=== PATIENT | male | born 1975 | race Caucasian/White ===

== ENCOUNTER 2021-05-18 18:03 | Observation (INO) | payer BC, SELFPAY ==
--- NOTE | ~2021-05-18 | CT_ITS ---
EXAMINATION: CT abdomen pelvis w con DATE: 05/18/2021 20:23 INDICATION: Right lower quadrant abdominal pain today TECHNIQUE: Computed tomography (CT) of the abdomen and pelvis was performed with 100 cc Omnipaque 350 intravenous contrast. Automated exposure control and iterative reconstruction technique were employe d. Exam dose: 396.51 mGy-cm total exam DLP. COMPARISON: 11/24/2018 CT abdomen pelvis FINDINGS: There is mild bilateral dependent lower lobe atelectasis. Normal heart size. No pericardial or pleural effusion. 5 mm right hepatic cyst. No suspicious hepatic mass lesion. The gallbladder is unremarkable. No bile duct dilatation. No pancreatic mass lesion, calcification or ductal dilatation. Normal splenic size. Normal morphology of the adrenal glands. There are couple of up to 6 mm right renal cyst. 1 cm and 2.8 cm left renal cysts. Approximately 1.5 x 3.5 mm nonobstructing lower pole left renal calculus. There is a smaller nonobstructing upper pole right renal calculus. No ureteral calculus or hydroureteronephrosis. The urinary bladder, prostate gland and seminal vesicl es are unremarkable. Status post bilateral inguinal herniorrhaphy. There is a 12 mm dilated appendix with thickened wall and mild periappendiceal fat stranding, consist ent with acute appendicitis. No bowel obstruction, bowel wall thickening, pneumatosis or intraperitoneal free air. Normal caliber of the abdominal aorta. No intraperitoneal or retroperitoneal or pelvic mass lesion or adenopathy or ascites. The Small fat-containing umbilical hernia. IMPRESSION: Acute appendicitis; no abscess or free air is evident. Dr. Juarez telephoned the report to emergency room physician Dr. Demarco on 05/18/2021 at 2040 hours. Reviewed, dictated and finalized at [facility]. Reviewed, dictated and finalized at [facility]. IMPRESSION: Acute appendicitis; no abscess or free air is evident. Dr. Juarez telephoned the report to emergency room physician Dr. Demarco on at 2040 hours.
[2021-05-18 18:19] VITALS: BP 137/92; PULSE 72; RESP 17; TEMP 36.6; O2SAT 100
[2021-05-18 18:40] LABS: Basophils Absolute Auto 0.1 K/mm3 (0.0-0.1); Basophils Percent Auto 0.3 % (0.2-1.2); Eosinophils Absolute Auto 0.2 K/mm3 (0-0.3); Eosinophils Percent Auto 1.4 % (0-4.4); Hematocrit 39.7 % (42.0-52.0); Hemoglobin 13.6 g/dL (14.0-18.0); Immature Granulocyte Absolute 0.04 K/mm3 (0.00-0.031); Immature Granulocyte Percent A 0.3 % (0-0.5); Lymphocytes Absolute Auto 1.13 K/mm3 (0.9-3.2); Lymphocytes Percent Auto 7.7 % (18.3-44.2); Mean Corpuscular HGB Conc 34.3 g/dl (32-36); Mean Corpuscular Hemoglobin 32.8 pg (26-34); Mean Corpuscular Volume 95.7 fl (80-100); Mean Platelet Volume 8.5 fl (7.4-10.4); Monocytes Absolute Auto 0.8 K/mm3 (0.1-0.6); Monocytes Percent Auto 5.7 % (2.6-8.5); Neutrophils Absolute Auto 12.4 K/mm3 (1.3-6.7); Neutrophils Percent Auto 84.6 % (45.5-73.1); Platelet Count Result 239 k/mm3 (150-375); Red Blood Count 4.15 M/mm3 (4.6-6.20); Red Cell Distribution Width 11.9 % (11.5-14.5); White Blood Count 14.6 K/mm3 (4.5-10.0)
[2021-05-18 18:52] LABS: Alanine Aminotransferase 38 U/L (4-50); Albumin Level 4.6 g/dL (3.5-5.1); Alkaline Phosphatase 47 U/L (38-126); Anion Gap 10 mmol/L (8-16); Aspartate Amino Transferase 28 U/L (17-59); Bilirubin,Total 0.6 mg/dL (0.2-1.3); Blood Urea Nitrogen 15 mg/dL (9-20); Calcium 9.9 mg/dL (8.4-10.2); Carbon Dioxide 24 mmol/L (22-30); Chloride 105 mmol/L (98-107); Estimated CRCL calculation 103 ml/min; Estimated Glomerular Filt Rate > 60; Glucose 110 mg/dL (65-110); Lipase 113 U/L (23-300); Potassium 4.4 mmol/L (3.4-5.0); Sodium 139 mmol/L (137-145)
[2021-05-18 18:59] LABS: Add Urine Microscopic? YES; Appearance Urine Clear (Clear); Bilirubin Urine Negative (Negative); Blood Urine 3+ (Negative); Color Urine Yellow (Yellow); Glucose Urine UA Negative (Negative); Ketones Urine Trace mg/dL (Negative); Leukocyte Esterase Ur Negative LEU/UL (Negative); Mucus Urine Rare /lpf; Nitrate Urine Negative (Negative); Protein Urine Negative (Negative); Specific Grav Ur 1.018 (1.001-1.035); Squamous Epithelial Cell Urine Rare /hpf (Few); Urobilinogen Urine Negative mg/dL (<2.0); WBC Urine 0-3 /hpf
[2021-05-18 19:51] VITALS: BP 144/89; PULSE 66; RESP 20
[2021-05-18] MEDS: KETOROLAC 30 MG/ML VIAL (*BKC) IV PUSH (20:04)
[2021-05-18] MEDS: MORPHINE SULFATE (*CRX) 4 MG/ML INJ IV PUSH (20:04)
[2021-05-18] MEDS: SODIUM CHLORIDE 0.9% IV 1,000 ML 999 ML IV CONT (20:04)
--- NOTE | 2021-05-18 20:13 | ED.GENADULT ---
HPI - General Adult General Chief complaint: Abdominal Pain Stated complaint: abd pain Time Seen by Provider: 05/18/21 19:44 Source: patient History of Present Illness HPI narrative: Patient is a 46 y/o male complaining of abdominal pain starting a few hours ago around 2:00 PM. He describes his pain as sharp and rates it 7/10. There is no known alleviating or exacerbating factor. His pain was initially located in epigastric area, but moved to right lower quadrant later. He has no vomiting or diarrhea. Related Data Home Medications Medication Instructions Recorded Confirmed atorvastatin 40 mg PO HS 05/18/21 05/18/21 lisinopril 40 mg PO HS 05/18/21 05/18/21 Allergies Allergy/AdvReac Type Severity Reaction Status Date / Time No Known Allergies Verified 05/18/21 23:05 NKDA Allergy Unknown Unknown Uncoded 05/18/21 23:05 NKFA Allergy Unknown Unknown Uncoded 05/18/21 23:05 Review of Systems Constitutional: Constitutional: Denies chills, Denies fever(s), Denies headache(s) and Denies weakness Eyes: Eyes: Denies blurry vision ENT: Denies headache(s) and Denies neck pain Cardiovascular: Cardiovascular: Denies chest pain and Denies dyspnea Respiratory: Respiratory: Denies cough and Denies dyspnea Gastrointestinal: Gastrointestinal: Reports abdominal pain, Denies diarrhea, Denies nausea and Denies vomiting Genitourinary: Genitourinary: Denies hematuria and Denies dysuria Musculoskeletal: Musculoskeletal: Denies back pain and Denies neck pain Neurologic: Denies headache(s) and Denies weakness [facility] Past Medical History Medical History Bilateral inguinal hernia Elevated blood pressure reading Hypercholesteremia Surgical History Surgical History History of hernia repair (~05/05/10) Family History Family History Other Malignant neoplasm of prostate Social History Social History Smoking status: Never smoker Second hand tobacco smoke exposure: No Alcohol intake: current Drinks per week: 10 Substance use: never Substance use type: does not use Spiritual care concerns: No Exam Const: General: no acute distress and well developed Orientation/consciousness: oriented to person, oriented to place, oriented to time and patient oriented x3 HENMT: Head: normocephalic Ears: external ears normal General nose exam: Normal external nose present Eyes: General: appearance normal, both eyes and all related structures Conjunctivae: conjunctivae normal Neck: Neck: normal visual inspection and full ROM Chest: Chest palpation & inspection: normal inspection of the chest and no tenderness Resp: Effort & Inspection: normal respiratory effort Auscultation: clear to auscultation bilaterally Cardio: Rate: regular rate Rhythm: regular rhythm GI: GI Palp: Yes abdominal tenderness (right lower abdomen) and Yes Soft to palpation Skin: General skin exam: normal color and turgor normal Neuro: General: oriented to person, oriented to place, oriented to time and patient oriented x3 Cognition (Neuro): normal cognition Extrem: General: normal to inspection, full ROM and no pedal edema Psych: Appearance: grossly normal Mental Status: mental status grossly normal Affect: normal affect Course Consultations Consultation #1: Discussed with Dr. Monique, who agrees to admit. Date: 05/18/21 Time: 20:49 Vital Signs Vital signs: Vital Signs Temperature 36.6 C 05/18/21 18:19 Pulse Rate 72 05/18/21 18:19 Respiratory Rate 17 05/18/21 18:19 Blood Pressure 137/92 H 05/18/21 18:19 Pulse Oximetry 100 05/18/21 18:19 Temperature 36.6 C 05/18/21 18:19 Pulse Rate 89 05/18/21 21:57 Respiratory Rate 18 05/18/21 21:57 Blood Pressure 125/75 05/18/21 21:57 Pulse Oximetry 97 05/18/21 2
[2021-05-18 20:51] VITALS: BP 126/74; PULSE 87; RESP 20; O2SAT 99
[2021-05-18 21:57] VITALS: BP 125/75; PULSE 89; RESP 18; O2SAT 97
--- NOTE | 2021-05-18 23:05 | ADMGEN ---
This patient, Morgan Martin, was admitted to Medical Room 344-01. Patient/family oriented to hospital policies and general routines including ID bracelet, bed and alarms, visiting hours, pain management, procedures, bathroom and other care routines, personal items, smoking policy, room service/diet, and visiting hours. Information on how to activate the Rapid Response Team has been discussed. Patient/Family are encouraged to report perceived risks to care and to ask questions if they do not understand what they are told or what they should do.
[2021-05-18] MEDS: SODIUM CHLORIDE 0.9% IV 1,000 ML 125 ML IV CONT (23:32)
[2021-05-19] VITALS (11 sets, daily range): BP systolic 106–136; BP diastolic 64–81; PULSE 69–89; RESP 12–20; TEMP 36.2–37.7; O2SAT 94–100
[2021-05-19 06:06] LABS: Basophils Percent Auto 0.2 % (0.2-1.2); Eosinophils Percent Auto 0.1 % (0-4.4); Hematocrit 35.9 % (42.0-52.0); Hemoglobin 12.3 g/dL (14.0-18.0); Immature Granulocyte Absolute 0.06 K/mm3 (0.00-0.031); Immature Granulocyte Percent A 0.4 % (0-0.5); Lymphocytes Absolute Auto 1.14 K/mm3 (0.9-3.2); Lymphocytes Percent Auto 7.9 % (18.3-44.2); Mean Corpuscular HGB Conc 34.3 g/dl (32-36); Mean Corpuscular Hemoglobin 32.5 pg (26-34); Mean Platelet Volume 8.9 fl (7.4-10.4); Monocytes Absolute Auto 0.9 K/mm3 (0.1-0.6); Monocytes Percent Auto 6.2 % (2.6-8.5); Neutrophils Absolute Auto 12.4 K/mm3 (1.3-6.7); Neutrophils Percent Auto 85.2 % (45.5-73.1); Platelet Count Result 217 k/mm3 (150-375); Red Blood Count 3.78 M/mm3 (4.6-6.20); Red Cell Distribution Width 11.9 % (11.5-14.5); White Blood Count 14.5 K/mm3 (4.5-10.0)
[2021-05-19] MEDS: MORPHINE SULFATE (*CRX) 4 MG/ML INJ IV PUSH (06:16)
--- NOTE | 2021-05-19 08:21 | PC.NURSE ---
Patient taken to or.
--- NOTE | 2021-05-19 08:33 | WPDANESEPPF ---
Anes - Initial Pre Proc Eval Procedure: Operation Date: 05/19/21 09:00 Proposed Procedures p Laparoscopic Appendectomy - Alon Monique MD Date/Time: 05/19/21 08:33 Surgeon: Alon Monique MD Pre Op Diagnosis: Appendicitis Patient Data Age: 46 Gender: M Height: 1.78 m Weight: 75 kg Last Vital Signs Temp 37.7 C H 05/19/21 06:00 Pulse 78 05/19/21 06:00 Resp 18 05/19/21 06:00 BP 136/70 05/19/21 06:00 Pulse Ox 98 05/19/21 06:00 Allergies Allergy/AdvReac Type Severity Reaction Status Date / Time No Known Allergies Verified 05/18/21 23:05 NKDA Allergy Unknown Unknown Uncoded 05/18/21 23:05 NKFA Allergy Unknown Unknown Uncoded 05/18/21 23:05 Home Medications Medication Instructions Recorded Confirmed Type atorvastatin 40 mg PO HS 05/18/21 05/18/21 History lisinopril 40 mg PO HS 05/18/21 05/18/21 History Laboratory Tests 05/18/21 05/18/21 05/18/21 18:29 18:29 18:43 WBC 14.6 K/mm3 H K/mm3 (4.5-10.0) RBC 4.15 M/mm3 L M/mm3 (4.6-6.20) Hgb 13.6 g/dL L g/dL (14.0-18.0) Hct 39.7 % L % (42.0-52.0) MCV 95.7 fl fl (80-100) MCH 32.8 pg pg (26-34) MCHC 34.3 g/dl g/dl (32-36) RDW 11.9 % % (11.5-14.5) Plt Count 239 k/mm3 k/mm3 (150-375) MPV 8.5 fl fl (7.4-10.4) Immature Gran % (Auto) 0.3 % % (0-0.5) Neut % (Auto) 84.6 % H % (45.5-73.1) Lymph % (Auto) 7.7 % L % (18.3-44.2) Ada % (Auto) 5.7 % % (2.6-8.5) Eos % (Auto) 1.4 % % (0-4.4) Baso % (Auto) 0.3 % % (0.2-1.2) Lymph # (Auto) 1.13 K/mm3 K/mm3 (0.9-3.2) Ada # (Auto) 0.8 K/mm3 H K/mm3 (0.1-0.6) Eos # (Auto) 0.2 K/mm3 K/mm3 (0-0.3) Baso # (Auto) 0.1 K/mm3 K/mm3 (0.0-0.1) Abs Immat Gran (auto) 0.04 K/mm3 H K/mm3 (0.00-0.031) Absolute Neuts (auto) 12.4 K/mm3 H K/mm3 (1.3-6.7) Absolute Nucleated RBC 0.0 K/mm3 K/mm3 (0.0-0.012) Nucleated RBC % 0.0 % % (0.0-0.2) Sodium 139 mmol/L mmol/L (137-145) Potassium 4.4 mmol/L mmol/L (3.4-5.0) Chloride 105 mmol/L mmol/L (98-107) Carbon Dioxide 24 mmol/L mmol/L (22-30) Anion Gap 10 mmol/L mmol/L (8-16) BUN 15 mg/dL mg/dL (9-20) Creatinine 0.80 mg/dL mg/dL (0.7-1.3) Estim Creat Clear Calc 103 ml/min ml/min Estimated GFR > 60 (59 - ) Glucose 110 mg/dL mg/dL (65-110) Calcium 9.9 mg/dL mg/dL (8.4-10.2) Total Bilirubin 0.6 mg/dL mg/dL (0.2-1.3) AST 28 U/L U/L (17-59) ALT 38 U/L U/L (4-50) Alkaline Phosphatase 47 U/L U/L (38-126) Total Protein 8.0 g/dL g/dL (6.3-8.2) Albumin 4.6 g/dL g/dL (3.5-5.1) Lipase 113 U/L U/L (23-300) Urine Color Yellow (Yellow) Urine Appearance Clear (Clear) Urine pH 5.0 (5.0-9.0) Ur Specific [place] 1.018 (1.001-1.035) Urine Protein Negative mg/dL mg/dL (Negative) Urine Glucose (UA) Negative mg/dL mg/dL (Negative) Urine Ketones Trace mg/dL mg/dL (Negative) Ur Blood (Man) 3+ H (Negative) Urine Nitrate Negative (Negative) Urine Bilirubin Negative (Negative) Urine Urobilinogen Negative mg/dL mg/dL (<2.0) Leukocyte Esterase Rfl Negative LISA/UL LISA/UL (Negative) Urine RBC 6-10 /hpf H /hpf (0-2) Urine WBC 0-3 /hpf /hpf Ur Squamous Epith Cells Rare /hpf /hpf (Few) Urine Mucus Rare /lpf /lpf 05/19/21 05:27 WBC 14.5 K/mm3 H K/mm3 (4.5-10.0) RBC 3.78 M/mm3 L M/mm3 (4.6-6.20) Hgb 12.3 g/dL L g/dL (14.0-18.0) Hct 35.9 % L % (42.0-52.0) MCV 95.0 fl fl (80-100) MCH 32.5 pg pg
--- NOTE | 2021-05-19 08:37 | WPDHPUPDATE1 ---
History and Physical Update Update Date/Time: 05/19/21 08:37 History and Physical has been reviewed, including an updated exam of the patient. There are NO changes in the patient's condition. Risks, benefits, and alternatives have been discussed and questions answered. Patient agrees to proceed with procedure.
--- NOTE | 2021-05-19 08:53 | PM.IMHP ---
H&P: HPI History of Present Illness Date/Time: 05/19/21 08:53 Chief Complaint: Right lower quadrant abdominal pain Narrative: Patient is a 46-year-old man who about 2:00 a.m. yesterday afternoon started experiencing epigastric abdominal pain. This was fairly mild but then moved to the periumbilical area. It then migrated to the lower abdomen and finally the right lower quadrant. He felt that if he could have a bowel movement it might relieve the pain. Unfortunately the pain persisted even after bowel movement. He came to the emergency room where he was noted to have right lower quadrant tenderness with some guarding. [place] [id number] scan showed a 12 mm appendix with periappendiceal inflammatory changes. He is taken to surgery now for laparoscopic appendectomy. He had a laparoscopic bilateral inguinal hernia repair in the past but otherwise no other abdominal procedures. Review of Systems Review of Systems: All systems reviewed & are unremarkable except as noted in HPI and below Constitutional: Constitutional: Denies anorexia, Denies chills, Denies fever(s) and Denies headache(s) Cardiovascular: Cardiovascular: Denies chest pain and Denies dyspnea Respiratory: Respiratory: Denies cough and Denies dyspnea Gastrointestinal: Gastrointestinal: Denies bloating, Denies constipation, Denies diarrhea, Denies nausea and Denies vomiting Neurologic: Denies confusion and Denies headache(s) [facility] Past Medical History Medical History Bilateral inguinal hernia Elevated blood pressure reading Hypercholesteremia Surgical History Surgical History History of hernia repair (~05/05/10) Family History Family History Other Malignant neoplasm of prostate Social History Social History Smoking status: Never smoker Second hand tobacco smoke exposure: No Alcohol intake: current Drinks per week: 10 Substance use: never Substance use type: does not use Spiritual care concerns: No Meds Home Medications and Allergies Home Medications Medication Instructions Recorded Confirmed Type atorvastatin 40 mg PO HS 05/18/21 05/18/21 History lisinopril 40 mg PO HS 05/18/21 05/18/21 History Allergies Allergy/AdvReac Type Severity Reaction Status Date / Time No Known Allergies Verified 05/18/21 23:05 NKDA Allergy Unknown Unknown Uncoded 05/18/21 23:05 NKFA Allergy Unknown Unknown Uncoded 05/18/21 23:05 Vital Signs Vital Signs - 24 hr 05/18/21 18:19 05/18/21 19:51 05/18/21 20:51 Temperature 36.6 C Pulse Rate 72 66 87 Respiratory Rate 17 20 20 Blood Pressure 137/92 H 144/89 H 126/74 Pulse Oximetry 100 99 05/18/21 21:57 05/19/21 00:00 05/19/21 06:00 Temperature 37.7 C H 37.7 C H Pulse Rate 89 83 78 Respiratory Rate 18 16 18 Blood Pressure 125/75 132/64 136/70 Pulse Oximetry 97 99 98 05/19/21 08:42 Temperature 37.1 C Pulse Rate 88 Respiratory Rate 16 Blood Pressure 118/74 Pulse Oximetry 96 Exam Const: General: cooperative, comfortable, no acute distress, alert and awake; No confusion Orientation/consciousness: No confusion HENMT: Head: normocephalic, atraumatic, no contusions and no scalp lesions Ears: external ears normal General nose exam: Normal external nose present Face and sinus: face symmetric and dry mucous membranes Mouth: Yes Normal oral and palatal mucosa present and Yes tongue normal Throat: posterior oropharynx normal Eyes: Conjunctivae: conjunctivae normal Sclera: sclerae normal Pupils: Equal, round and reactive pupils present EOM: EOMs intact bilaterally Neck: Neck: normal visual inspection, no lymphadenopathy, trachea midline, supple, nontender and no JVD Thyroid: abnormal thyroid Resp: Effort & Inspection: normal respirato
--- NOTE | 2021-05-19 09:39 | PM.DS ---
DS: Admitting Diagnosis Discharge Date 05/19/21 appendicitis Admitting Diagnosis appendicitis DS: Discharge Diagnosis Discharge Diagnosis (1) Acute appendicitis: Qualifiers: Acute appendicitis type: unspecified acute appendicitis type Qualified Code(s): K35.80 - Unspecified acute appendicitis Code(s): K35.80 - Unspecified acute appendicitis Status: Acute DS: Summary Hospital Course Hospital Course: Patient came to ER with signs, symptoms, CT c/w appendicitis. Laparoscopic appendectomy performed and patient went home same day. Status at Discharge Overall status at discharge: patient is progressing back to baseline Time Spent with Patient Time attestation: Total time spent providing and/or coordinating discharge services: DS: Data Data Completed and Pending Completed studies during hospitalization: Pending at discharge 05/19/21 09:22 Surgical [PTH] Routine Discharge Plan Discharge Attending physician on discharge: Alon Monique Consulting providers: Sameer Juarez Discharging Clinician: Alon Monique Anticipated Discharge Date/Time: 05/19/21 16:00 Patient Disposition: Home, Self-Care Activity: may shower, no straining and as tolerated Diet: as tolerated and regular Wound Care Instructions: incision open to air Discharge Instructions: 1. May shower the day after surgery over incisions. 2. Call office for: -Wound increasingly painful or bleeding -Vomiting -Fever of greater than 101 degrees 3. Expect some blood on dressing and old blood on skin. 4. If no bowel movement for three days, take 1 oz. (30 ml) Milk of Magnesia, if no results, take Fleets enema. 5. No heavy lifting > 15-20 pounds for 2 weeks. 6. No driving for 3 days or while taking narcotic pain medications. 7. Up walking 10-30 minutes three times per day. 8. Resume previous home medications. 9. Follow-up 10-14 days in office for wound check or as previously scheduled. 10. Oral pain medications prescription to be sent home with patient. 11. NUTRITION: Start out by drinking fluids and increase your diet as tolerated. If you experience nausea, try dry toast, crackers, and 7-UP. If nausea or vomiting persists, contact your surgeon?s office. Patient Instructions: Antibiotic Form Stand Alone Forms: General Discharge Information Follow-up/Referrals: Alon Monique MD [Physician] - 2 Weeks (Call for appointment) Discharge Medications: New hydrocodone-acetaminophen 5-325 mg tablet 1 - 2 tablet PO Q6H PRN (Reason: pain) Qty: 7 RF: 0 ketorolac 10 mg tablet 10 mg PO Q6H 4 Days Qty: 16 RF: 0 Continued atorvastatin 40 mg tablet 40 mg PO HS RF: 0 lisinopril 40 mg tablet 40 mg PO HS RF: 0 Date of admission: 05/18/21 21:03 Primary Care Provider: Mor Hurtado Admitting Provider: Alon Monique Attending physician on admission: Alon Monique Condition: Improved
[2021-05-19] MEDS: LACTATED RINGERS 1,000 ML 30 ML IV CONT (09:43)
--- NOTE | 2021-05-19 10:33 | PC.NURSE ---
Patient back from the OR.
--- NOTE | 2021-05-19 11:58 | P.OP_ITS ---
Procedure Note - Detailed Date of Procedure 05/19/21 Pre-op Diagnosis Appendicitis Post-op Diagnosis same Procedure Performed Laparoscopic appendectomy Surgeon Alon Monique MD [employer] Simona Cisneros, [employer] Anesthesia general and local (1% lidocaine with epinephrine) Indications Patient developed midline abdominal pain that moved to the right lower quadrant. It got worse and was associated with tenderness. He had an elevated white count. CT scan showed a 12 mm dilated appendix with periappendiceal inflammatory changes consistent with appendicitis. He is taken to surgery now for laparoscopic appendectomy. Findings Acute non perforated appendicitis Description of Procedure The patient was taken to surgery and induced into general anesthesia. The abdomen is prepped and draped. Trocars were placed in the usual fashion using 1% lidocaine with epinephrine and applied Medical optical trocars. Insufflation was carried out. The patient was placed in Trendelenburg with the right-side elevated. The appendix was found fairly easily. It was gently dissected free from the surrounding structures and inflammatory adhesions. The appendix was elevated and dissection was carried out in the mesoappendix. Appendiceal vessels were thoroughly cauterized and divided. Eventually the base of the appendix was skeletonized. The appendix was then ligated at its base with a Brayan ryl endoloop. The appendix was amputated just above the ligature and the mucosa of the appendiceal stump was cauterized. The appendix was placed then in an Endo-Catch bag and retrieved through the 10 11 left lower quadrant trocar site. The trocar was then replaced. We reviewed the areas of dissection and the appendiceal stump. Suctioning and irrigation were carried out. All looked quite good without any signs of problems. We then evacuated CO2 and removed the trocar sleeves. Skin wounds were closed with subcuticular 4-0 Monocryl skin suture. The wounds were dressed with Exofin surgical adhesive. Estimated Blood Loss -5.0 Drains No Packing No Pathology yes (Appendix) Complications No immediate complications Condition stable Disposition PACU
== END 2021-05-19 16:30 | disposition home or self-care (01) ==
LOC: ANHED 19:46 → ANH3MED 22:09
PROVIDERS: Family Medicine; Admitting Provider Surgery; Emergency Provider Emergency Medicine; PCP Physician Assistant; Visit Provider Surgery
PROC: 0DTJ4ZZ Resection of Appendix, Percutaneous Endoscopic Approach (ICD-10-PCS; CPT 44970; principal; 2021-05-19 09:00)
DX: K35.30 Acute appendicitis with localized peritonitis, without perforation or gangrene (principal); E78.00 Pure hypercholesterolemia, unspecified
CPT/HCPCS: 44970; 36415; 74177; 80053; 81001; 83690; 85025; 88304; 96361; 96365; 96366; 96375; 96376; 99285; G0378; J0330; J1100; J1170; J1885; J2250; J2270; J2405; J2543; J2704; J3010; J7030; J7120; Q9967

== ENCOUNTER 2022-10-18 01:02 | Day surgery (SDC) | payer BC, SELFPAY ==
[2022-10-06 15:52] VITALS: BMI 25.9
[2022-10-18 06:43] VITALS: BP 119/73; PULSE 60; RESP 20; TEMP 36.4; O2SAT 99; BMI 25.9
[2022-10-18] MEDS: LACTATED RINGERS 1,000 ML 150 ML IV CONT (06:50)
--- NOTE | 2022-10-18 07:49 | PM.HPGS ---
History of Present Illness History of Present Illness Consent: Risks, benefits, and alternatives have been discussed and questions answered. Patient agrees to proceed with procedure. Chief complaint: neoplasm screening, hx colon polyps Narrative: Morgan Martin is a 47 year old male Presents for screening colonoscopy. Patient reports prior colonoscopy with colon polyps 6 or 7 years prior to this. Patient reports his current weight appetite and bowel movements are normal. Patient denies abdominal pain. He has had no bleeding. Family history is noncontributory. [facility] Past Medical History Medical History Bilateral inguinal hernia Elevated blood pressure reading Hypercholesteremia Surgical History Surgical History History of hernia repair (~05/05/10) History of laparoscopic appendectomy 05/18/21 Family History Family History Father Malignant neoplasm of prostate Social History Social History (Updated 07/26/22 @ 08:33 by Chante Cisneros PA-C) Smoking status: Never smoker Second hand tobacco smoke exposure: No Alcohol intake: current Drinks per week: 10 Alcohol use details: DRINKS Substance use: never Substance use type: does not use Lack of Transportation: No Lack of Food: Never True Current Housing: I Have Housing Concerned About Future Housing: No Difficulty Paying Gas/Electric Bills: No Difficulty Paying for Meds: No Currently Unemployed: No Education: Master's Degree or Higher Difficulty w/ Childcare or Family Care: No Living arrangements: with family Spiritual care concerns: No Meds Home Medications and Allergies Home Medications Medication Instructions Recorded Confirmed Type aspirin 81 mg tablet,delayed 81 mg PO DAILY 07/23/21 10/06/22 History release (Adult Aspirin Regimen) lisinopril 40 mg tablet 40 mg PO HS #90 tabs 02/04/22 10/06/22 Rx atorvastatin 40 mg tablet See Rx Instructions .Route 03/11/22 10/06/22 Rx .COMPLEX #90 tabs epinephrine 0.3 mg/0.3 mL 0.3 mg (0.3 mL) IM ONCE #2 ea 07/26/22 10/06/22 Rx injection, auto-injector (EpiPen) sodium,potassium,mag sulfates 17.5 See Rx Instructions PO .COMPLEX 08/18/22 10/06/22 Rx gram-3.13 gram-1.6 gram oral soln #354 mL (Suprep Bowel Prep Kit) cetirizine 10 mg tablet (Zyrtec) 10 mg PO DAILY 10/06/22 10/06/22 History Allergies Allergy/AdvReac Type Severity Reaction Status Date / Time No Known Allergies Allergy Verified 10/18/22 06:42 Vital Signs Vital Signs - 24 hr 10/18/22 06:43 Temperature 97.6 F Pulse Rate 60 Respiratory Rate 20 Blood Pressure 119/73 Pulse Oximetry 99 Oxygen Delivery Room Air Exam Narrative: Physical exam reveals patient be alert. Vital signs stable. HEENT exam is unremarkable. Patient is anicteric. Lungs are clear to auscultation and percussion. Heart is without murmur or extra sounds. Abdomen bowel sounds present soft nontender with no organomegaly. Digital external rectal exam is normal. Assessment and Plan Assessment and plan (1) Encounter for screening colonoscopy: Code(s): Z12.11 - Encounter for screening for malignant neoplasm of colon Status: Acute Assessment and Plan: Patient presents today for screening colonoscopy. Review of records reveals he had a benign hyperplastic polyp 6 or 7 years prior to this. Further recommendations will be given after endoscopy.
--- NOTE | 2022-10-18 07:50 | WPDANESEPPF ---
Anes - Initial Pre Proc Eval Procedure: Operation Date: 10/18/22 08:00 Proposed Procedures p Screening Colonoscopy - Panchito Hui MD Date/Time: 10/18/22 07:50 Surgeon: Panchito Hui MD Pre Op Diagnosis: neoplasm screening, hx colon polyps Patient Data Age: 47 Gender: M Height: 1.75 m Weight: 79.6 kg Last Vital Signs Temp 97.6 F 10/18/22 06:43 Pulse 60 10/18/22 06:43 Resp 20 10/18/22 06:43 BP 119/73 10/18/22 06:43 Pulse Ox 99 10/18/22 06:43 O2 Del Method Room Air 10/18/22 06:43 Allergies Allergy/AdvReac Type Severity Reaction Status Date / Time No Known Allergies Allergy Verified 10/18/22 06:42 Home Medications Medication Instructions Recorded Confirmed Type aspirin 81 mg tablet,delayed 81 mg PO DAILY 07/23/21 10/06/22 History release (Adult Aspirin Regimen) lisinopril 40 mg tablet 40 mg PO HS #90 tabs 02/04/22 10/06/22 Rx atorvastatin 40 mg tablet See Rx Instructions .Route 03/11/22 10/06/22 Rx .COMPLEX #90 tabs epinephrine 0.3 mg/0.3 mL 0.3 mg (0.3 mL) IM ONCE #2 ea 07/26/22 10/06/22 Rx injection, auto-injector (EpiPen) sodium,potassium,mag sulfates 17.5 See Rx Instructions PO .COMPLEX 08/18/22 10/06/22 Rx gram-3.13 gram-1.6 gram oral soln #354 mL (Suprep Bowel Prep Kit) cetirizine 10 mg tablet (Zyrtec) 10 mg PO DAILY 10/06/22 10/06/22 History Patient hx anesthesia problems: none Family hx anesthesia problems: none Results Review: All pre-operative results and documents have been reviewed as part of the pre-operative evaluation. [facility] Past Medical History Medical History Bilateral inguinal hernia Elevated blood pressure reading Hypercholesteremia Surgical History Surgical History History of hernia repair (~05/05/10) History of laparoscopic appendectomy 05/18/21 Family History Family History Father Malignant neoplasm of prostate Social History Social History (Updated 07/26/22 @ 08:33 by Chante Cisneros PA-C) Smoking status: Never smoker Second hand tobacco smoke exposure: No Alcohol intake: current Drinks per week: 10 Alcohol use details: DRINKS Substance use: never Substance use type: does not use Lack of Transportation: No Lack of Food: Never True Current Housing: I Have Housing Concerned About Future Housing: No Difficulty Paying Gas/Electric Bills: No Difficulty Paying for Meds: No Currently Unemployed: No Education: Master's Degree or Higher Difficulty w/ Childcare or Family Care: No Living arrangements: with family Spiritual care concerns: No Anes - Eval Final PreProcedure Day of Procedure 10/18/22 07:50 Patient weight: normal Heart: regular rate and rhythm Lungs: clear to auscultation Airway: Mallampati scale class II Neurological: alert and oriented Last oral intake: >/= 8 hours ASA classification: II Emergent: no Anesthetic plan: proceed Anesthesia type and monitoring: general GIVS and standard monitoring Results Review: All pre-operative results and documents have been reviewed as part of the pre-operative evaluation. Informed Consent: The patient's anesthetic plan and its attendant risks and benefits were discussed with the patient/family/POA. Questions were solicited and answers provided to the satisfaction of the patient/family/POA.
[2022-10-18 08:15] VITALS: BP 102/60; PULSE 68; RESP 21; TEMP 36.4; O2SAT 99
[2022-10-18 08:25] VITALS: BP 99/65; PULSE 57; RESP 21; TEMP 36.4; O2SAT 99
[2022-10-18 08:35] VITALS: BP 104/70; PULSE 52; RESP 18; TEMP 36.4; O2SAT 99
== END 2022-10-18 08:37 | disposition home or self-care (01) ==
PROVIDERS: PCP Family Medicine; Visit Provider Internal Medicine Gastroenterology
PROC: 0DJD8ZZ Inspection of Lower Intestinal Tract, Via Natural or Artificial Opening Endoscopic (ICD-10-PCS; CPT 45378; principal; 2022-10-18 08:00)
DX: Z12.11 Encounter for screening for malignant neoplasm of colon (principal); Z86.010 Personal history of colon polyps; E78.00 Pure hypercholesterolemia, unspecified; Z79.82 Long term (current) use of aspirin
CPT/HCPCS: 45378; J2704; J7120